=== PATIENT | male | born 1985 | race Caucasian/White ===

== ENCOUNTER → 2017-12-17 | Outpatient (CLI) | payer OTHER ==
--- NOTE | 2017-12-17 13:43 | DIAGNOSTIC IMAGING REPORT ---
(TESTICULAR) SCROTUM-CONT CLINICAL HISTORY: 32 years-old Male presenting with DISORDER OF MALE GENITAL ORGANS UNSPECIFIED. TECHNIQUE: Real-time grayscale and color and spectral Doppler ultrasound imaging of the scrotum was performed. COMPARISON: None. FINDINGS: Right testis: Normal echogenicity and echotexture. Testis measures 4.1 x 3.4 x 2.2 cm. Normal color Doppler flow and arterial and venous waveforms in the testicular parenchyma. Epididymal head normal. Trace hydrocele No varicocele. Left testis: Normal echogenicity and echotexture. Testis measures 4.0 x 2.7 x 2.2 cm. Normal color Doppler flow and arterial and venous waveforms in the testicular parenchyma. Epididymal head normal. Trace hydrocele. No varicocele. Symmetric perfusion of the testes. IMPRESSION: 1. No evidence of testicular torsion. 2. Trace bilateral hydroceles. Electronically signed by: Aroldo Watters M.D. 12/17/2017 1:42 PM Dictated Date/Time: 12/17/2017 1:41 PM
== END | disposition home or self-care (01) ==
LOC: C.ULTR 13:03
PROVIDERS: ATTEND Family Medicine Adolescent Medicine
DX: N50.9 Disorder of male genital organs, unspecified (principal)